=== PATIENT | female | born 1960 | race Caucasian/White ===

== ENCOUNTER 2019-07-11 12:09 | Emergency (ER) | payer BC, MEDICAID, SELFPAY ==
--- NOTE | ~2019-07-11 | XR_ITS ---
XR knee RT 3V DATE: 07/11/2019 13:48 INDICATION: Right knee pain TECHNIQUE: 3 views including crosstable lateral COMPARISON: None FINDINGS: There is tricompartment osteoarthritis, most prominent at the medial and patellofemoral com partments. No fracture or dislocation, periosteal reaction or bone destruction is evident. IMPRESSION: Tricompartment osteoporosis No evidence of knee fracture Reviewed, dictated and finalized at location A.
--- NOTE | ~2019-07-11 | XR_ITS ---
XR tibia fibula RT 2V DATE: 07/11/2019 13:10 INDICATION: Right lower leg pain, distal lateral pain and swelling. No known injury. TECHNIQUE: AP and lateral views COMPARISON: None FINDINGS: There is a nondisplaced transverse distal fibular diametaphyseal fracture with mild scleros is, likely a healing fracture. There is question of a subtle transverse fracture at the medial tibial plateau with mild depression. Right knee radiographs are recommended. No other fracture or dislocation, periosteal reaction or bone destruction is evident. Osteoarthritic changes are noted at the knee joint, particularly medial and patellofemoral compartmen ts. Osteopenia. IMPRESSION: Transverse nondisplaced healing distal fibular diametaphyseal fracture Possible subtle medial tibial plateau fracture; recommend right knee radiographs Reviewed, dictated and finalized at location A. IMPRESSION: Transverse nondisplaced healing distal fibular diametaphyseal fract ure Possible subtle medial tibial plateau fracture; recommend right knee radiograph s
[2019-07-11 12:12] VITALS: BP 182/78; PULSE 72; RESP 20; TEMP 36.7; O2SAT 100
--- NOTE | 2019-07-11 12:34 | ED.GENADULT ---
HPI - General Adult General Chief complaint: Unspecified Stated complaint: I can't hardly walk, it's my right and I'm not cordelia Time Seen by Provider: 07/11/19 12:25 History of Present Illness HPI narrative: Patient is a 58 YO female with hx of HTN who comes to ED today with concerns of R lower leg pain x 5 days and also feeling anxious and nuaseated x 2 weeks. The R leg pain started 5 days ago and there is some edema at proximal ankles/distal 1/3 of tib/fib, pain is worse with movement and ambulation. She is able to walk with a limp. There is no numbness, tingling, rash, fevers. No known HILL. No previous hx of similar sxs. Feeling anxious x 2 weeks. No SI or HI. Has nausea with occasional dry heaving, no abdominal pain. No diarrhea, constipation, urinary sxs. Drinks etoh daily. No drug use. Used to take prozac, has been off of that for a long time . Related Data Home Medications Medication Instructions Recorded Confirmed albuterol sulfate [Ventolin HFA] INHALATION 07/11/19 atenolol 07/11/19 budesonide-formoterol [Symbicort] 2 puff INHALATION Q12H 07/11/19 07/11/19 lisinopril 07/11/19 Allergies Allergy/AdvReac Type Severity Reaction Status Date / Time ANTIHISTAMINES AdvReac Mild Jittery Uncoded 07/11/19 12:18 Review of Systems Review of Systems: All systems reviewed & are unremarkable except as noted in HPI and below [facility] Past Medical History Medical History (Updated 07/11/19 @ 14:55 by Clifton Alexis PA-C) HTN (hypertension) Exam Const: General: no acute distress HENMT: Head: normal to inspection Eyes: Pupils: Equal, round and reactive pupils present Chest: Chest palpation & inspection: normal inspection of the chest Resp: Effort & Inspection: normal respiratory effort Auscultation: clear to auscultation bilaterally Cardio: Rate: regular rate Rhythm: regular rhythm GI: Inspection: distended GI Palp: Yes Soft to palpation and Yes Tenderness to palpation present (GI) (TTP over epigastric region. Rest of abdomen is mildly discomfor to palpate ) Other: Negative schwab's sign Skin: General skin exam: normal color Neuro: General: patient oriented x3 and moves all extremities Extrem: Other: TTP R calf. TTP distal 1/3 of tib fib with some overlying edema that is primarly over anterior/lateral aspect of leg. Full ROM on R ankle with pain. No pedal edema. Good pedal pulses, normal temp to touch, nvl intact. Psych: Appearance: grossly normal Mental Status: mental status grossly normal Affect: normal affect Attitude: cooperative Thought content: Yes Normal thought content present, No Suicidality present, No Homicidality present, No Paranoid delusions present, No delusions, No Hallucination(s) present, No Depressive thoughts present, No Ideas of reference present (thought content), No Derealization present, No Depersonalization present, No Compulsions present (thought content), No Obsession(s) present and No Phobia(s) present Course Course Emergency Course: 1500 Feeling better Tolerating PO well OCL splint being placed. Vital Signs Vital signs: Vital Signs Temperature 36.7 C 07/11/19 12:12 Pulse Rate 72 07/11/19 12:12 Respiratory Rate 07/11/19 12:12 Blood Pressure 182/78 H 07/11/19 12:12 Pulse Oximetry 100 07/11/19 12:12 Temperature 36.7 C 07/11/19 12:12 Pulse Rate 65 07/11/19 14:36 Respiratory Rate 07/11/19 14:36 Blood Pressure 161/72 H 07/11/19 14:36 Pulse Oximetry 100 07/11/19 14:36 Procedures Orthopedic Splinting/Casting Injury #1: Splinting/Casting Date: 07/11/19 Splinting/Casting Time: 14:52 Side: right Lower Extremity Injury Location: lower leg Lower Extremity Immobilizer: posterior splint Splint: customized in ED OCL: short leg Pre-Procedure Neuro Vascular Exam: normal Post-Procedure Neuro Vascular Exam: normal Other Orthopedic Equipment: crutches Medical Decision
[2019-07-11 13:22] LABS: Basophils Percent Auto 0.4 % (0.2-1.2); Eosinophils Absolute Auto 0.1 K/mm3 (0-0.3); Hematocrit 41.6 % (37.0-47.0); Hemoglobin 14.5 g/dL (12.0-15.0); Immature Granulocyte Absolute 0.03 K/mm3 (0.00-0.031); Immature Granulocyte Percent A 0.3 % (0-0.5); Lymphocytes Absolute Auto 1.23 K/mm3 (0.9-3.2); Lymphocytes Percent Auto 13.7 % (18.3-44.2); Mean Corpuscular HGB Conc 34.9 g/dl (32-36); Mean Corpuscular Hemoglobin 33.5 pg (26-34); Mean Corpuscular Volume 96.1 fl (80-100); Monocytes Percent Auto 10.7 % (2.6-8.5); Neutrophils Absolute Auto 6.6 K/mm3 (1.3-6.7); Neutrophils Percent Auto 73.9 % (45.5-73.1); Platelet Count Result 200 k/mm3 (150-375); Red Blood Count 4.33 M/mm3 (4.2-5.4)
[2019-07-11] MEDS: ONDANSETRON INJ 4 MG/2 ML VIAL IV PUSH (13:22)
[2019-07-11] MEDS: KETOROLAC 30 MG/ML VIAL (*BKC) (13:22)
[2019-07-11] MEDS: FAMOTIDINE 20 MG/2 ML VIAL IV PUSH (13:22)
[2019-07-11 13:24] VITALS: BP 209/98; PULSE 62; RESP 20; O2SAT 100
[2019-07-11 13:24] LABS: Add Urine Microscopic? NO; Appearance Urine Clear (Clear); Bilirubin Urine Negative (Negative); Blood Urine Negative (Negative); Color Urine Straw (Yellow); Glucose Urine UA Negative (Negative); Ketones Urine Negative (Negative); Leukocyte Esterase Ur Negative LEU/UL (Negative); Nitrate Urine Negative (Negative); Protein Urine Negative (Negative); Urobilinogen Urine Negative mg/dL (<2.0)
[2019-07-11 13:27] LABS: Specific Grav Ur 1.004 (1.001-1.035)
[2019-07-11 13:36] LABS: Alanine Aminotransferase 29 U/L (4-35); Albumin Level 4.5 g/dL (3.5-5.1); Alkaline Phosphatase 72 U/L (38-126); Aspartate Amino Transferase 38 U/L (14-36); Blood Urea Nitrogen 8 mg/dL (7-17); Calcium 9.4 mg/dL (8.4-10.2); Carbon Dioxide 28 mmol/L (22-30); Chloride 91 mmol/L (98-107); Estimated CRCL calculation 78 ml/min; Estimated Glomerular Filt Rate > 60; Glucose 102 mg/dL (65-105); Lipase 116 U/L (23-300); Potassium 4.1 mmol/L (3.4-5.0); Sodium 128 mmol/L (137-145)
[2019-07-11 14:36] VITALS: BP 161/72; PULSE 65; RESP 20; O2SAT 100
[2019-07-11] MEDS: hydrOXYzine pamoate 25 MG CAPSULE 50 MG PO (14:50)
--- NOTE | 2019-07-11 15:42 | PC.NURSE ---
pt wanted ortho glass splint off PA-C at bedside aware of pt concerns to drive and walk dog pt right lower leg nick wrapped and ortho splint taken with pt to wear at home pt states she has crutches at home and will follow up with ortho doc kenroy PA-C aware and stated it was ok for pt to take splint pt taken to exit via w/c and picked up by friend
[2019-07-11 15:45] VITALS: PULSE 65; RESP 20; O2SAT 100
== END 2019-07-11 15:47 | disposition home or self-care (01) ==
PROVIDERS: Physician Assistant Medical; Emergency Provider Emergency Medicine; PCP Internal Medicine
DX: S82.831A Other fracture of upper and lower end of right fibula, initial encounter for closed fracture (principal); I10 Essential (primary) hypertension; F41.9 Anxiety disorder, unspecified; E87.1 Hypo-osmolality and hyponatremia; X58.XXXA Exposure to other specified factors, initial encounter
CPT/HCPCS: 29515; 36415; 73562; 73590; 80053; 81003; 83690; 85025; 96374; 96375; 99284; A9270; J1885; J2405